=== PATIENT | male | born 1985 | race American Indian/Alaskan Native ===

== ENCOUNTER 2021-08-12 12:17 | Emergency (ER) | payer OTHER ==
[2021-08-12] MEDS ORDERED: fentaNYL 100 MCG/2 ML INJ IV ONE (12:37)
[2021-08-12] MEDS ORDERED: ONDANSETRON 4 MG/2 ML INJ IV ONE (12:37)
[2021-08-12] MEDS ORDERED: ETOMIDATE 20 MG/10 ML INJ IV ONE (12:40)
--- NOTE | 2021-08-12 12:40 | Emergency Department Report ---
HPI - General Chief Complaint: Extremity Problem,Nontraumatic Time Seen by Provider: 08/12/21 12:30 - HPI HPI: Room 7 The patient is a 36-year-old male present with a chief complaint of right shoulder pain. Patient states he was demonstrating symptoms to his son and when he pounded his right fist down on an object he felt his right shoulder dislocate. This is happened to him in the past. ED Past Medical Hx - Past Medical History Previous Medical History?: No - Surgical History Additional Surgical History: Herniorrhaphy age 10 - Family History Family history: no significant - Social History Smoking Status: Current Every Day Smoker (1/3 pack/day) Substance Use Type: Marijuana - Medications Home Medications: Home Medications Medication Instructions Recorded Confirmed Last Taken Type HYDROcodone/APAP 5-325 [[place] 1 - 2 each PO Q6HR PRN #14 tablet 08/12/21 Unknown Rx 5/325] Ibuprofen [Motrin 800 MG tab] 800 mg PO Q8HR PRN #20 tablet 08/12/21 Unknown Rx ED Review of Systems ROS: Stated complaint: SHOULDER DISLOCATION Other details as noted in HPI Constitutional: no symptoms reported Eyes: denies: eye pain ENT: denies: throat pain Respiratory: no symptoms reported Cardiovascular: denies: chest pain Endocrine: no symptoms reported Gastrointestinal: denies: abdominal pain Genitourinary: denies: dysuria Musculoskeletal: arthralgia Neurological: denies: headache Physical Exam - Physical Exam Vital Signs: Vital Signs 08/12/21 12:25 Temperature 98.6 F Pulse Rate 53 L Respiratory 12 Rate Blood Pressure 168/94 [Right] O2 Sat by Pulse 97 Oximetry Physical Exam: GENERAL: The patient is well-developed well-nourished male lying on stretcher not appearing to be in acute distress. [] HEENT: Normocephalic. Atraumatic. Extraocular motions are intact. Patient has moist mucous membranes. NECK: Supple. Trachea midline CHEST/LUNGS: There is no respiratory distress noted. HEART/CARDIOVASCULAR: Regular. There is no tachycardia. 2+ right radial pulse SKIN: There is no rash. There is no edema. There is no diaphoresis. NEURO: The patient is awake, alert, and oriented. The patient is cooperative. The patient has no focal neurologic deficits. The patient has normal speech. Normal medial/radial/ulnar nerve function in right upper extremity MUSCULOSKELETAL: There is deformity of the right shoulder ED Course Vital Signs 08/12/21 12:25 Temperature 98.6 F Pulse Rate 53 L Respiratory 12 Rate Blood Pressure 168/94 [Right] O2 Sat by Pulse 97 Oximetry - Moderate Sedation Indications: fracture/dislocation redu ASA Class: I Mallampati Airway Score: 1 Preparation: major assembly inspector applied, pulse oximeter, capnometry used, supplemental O2 applied, suction/airway equipment at bedside IV Etomidate Dose (mgs): 10 Complications: none Patient Tolerated Procedure: well, no complications - Orthopedic Joint Reduction Joint #1 Consent Obtained: verbal consent Time Out Performed: Yes Side: right Joint Reduction Location: shoulder Analgesia: moderate sedation Shoulder Technique Used (if applicable): traction/counter-traction Technique Used: traction/counter-traction Post-Reduction Neuro Exam: intact Post-Reduction Vascular Exam: intact Post Reduction X-Ray Obtained: Yes Post Reduction X-Ray Results: reduced Splint Applied: Yes (Shoulder immobilizer) Patient Tolerated Procedure: well, no complications ED Medical Decision Making - Radiology Data Radiology results: report reviewed (Right shoulder x-ray #1, right shoulder x- ray #2), image reviewed (Right shoulder x-ray #1, right shoulder x-ray #2) interpreted by me: Right shoulder x-ray #1-anterior dislocation, no fracture Right shoulder x-ray #2-anatomic. No fracture [address] [address] XRay Report Signed Patient: MARTINEZ CAAL MR#: [id number] : 1985 Acct:[id number] Age/Sex: 36 / M ADM Date: 08/12/21 Loc: ED Attending Dr: Ordering Physician: MARCOS VELA MD Date of Service: 08/12/21 Procedure(s): XR shoulder 2+V RT Accession Number(s): [id number] cc: MARCOS VELA MD Fluoro Time In Minutes: XR shoulder 2+V RT INDICATION / CLINICAL INFORMATION: Right shoulder pain after pounding fist. COMPARISON: None available. FINDINGS: There is an anterior glenohumeral joint dislocation. There is no appreciable fracture. Signer Name: Fabien Colmenares MD Signed: 08/12/2021 12:59 PM Workstation Name: [id number] Transcribed By: KRYSTLE Dictated By: Fabien Colmenares MD Electronically Authenticated By: Fabien Colmenares MD Signed Date/Time: 08/12/211258 DD/ 58 TD/TT: Print Cancel [facility] [address] [place] [address] XRay Report Signed Patient: MARTINEZ CAAL MR#: [id number] : 1985 Acct:[id number] Age/Sex: 36 / M ADM Date: 08/12/21 Loc: ED Attending Dr: Ordering Physician: MARCOS VELA MD Date of Service: 08/12/21 Procedure(s): XR shoulder 1V RT Accession Number(s): [id number] cc: MARCOS VELA MD Fluoro Time In Minutes: RIGHT SHOULDER ONE VIEW INDICATION: Post reduction. COMPARISON: Earlier today at 1246 hours IMPRESSION: Right shoulder dislocation has been reduced and is now anatomic in alignment. No obvious fracture on single view. Signer Name: Gwyn Lee Jr, MD Signed: 08/12/2021 2:23 PM Workstation Name: [id number] Transcribed By: TTR Dictated By: GWYN LEE JR, MD Electronically Authenticated By: GWYN LEE JR, MD Signed Date/Time: 08/12/211422 DD/ 21 TD/TT: Print Cancel ] - Differential Diagnosis Right shoulder dislocation, pathologic fracture Critical care attestation.: If time is entered above; I have spent that time in minutes in the direct care of this critically ill patient, excluding procedure time. ED Disposition Clinical Impression: Anterior dislocation of right shoulder Disposition: 01 HOME / SELF CARE / HOMELESS Is pt being admited?: No Does the pt Need Aspirin: No Condition: Stable Instructions: Shoulder Dislocation, [id number] Additional Instructions: Return to the emergency department should you develop worsening symptoms, inability to tolerate food or liquids, high fever or any other concerns Prescriptions: Ibuprofen [Motrin 800 MG tab] 800 mg PO Q8HR PRN #20 tablet PRN Reason: Pain, Moderate (4-6) HYDROcodone/APAP 5-325 [[place] 5/325] 1 - 2 each PO Q6HR PRN #14 tablet PRN Reason: Pain Referrals: PRIMARY CAREMD [Primary Care Provider] - 3-5 Days JABARI BERMEO MD [Staff Physician] - 3-5 Days (Dr. Bermeo is an orthopedic surgeon. Please follow-up with him for further evaluation) Time of Disposition: 14:32
--- NOTE | 2021-08-12 13:04 | XRay Report ---
XR shoulder 2+V RT INDICATION / CLINICAL INFORMATION: Right shoulder pain after pounding fist. COMPARISON: None available. FINDINGS: There is an anterior glenohumeral joint dislocation. There is no appreciable fracture. Signer Name: Fabien Colmenares MD Signed: 08/12/2021 12:59 PM Workstation Name: [id number]
[2021-08-12] MEDS: KETOROLAC 30 MG/1 ML INJ IV ONE ×2 (13:08→13:09)
[2021-08-12] MEDS ORDERED: SODIUM CHLORIDE 0.9% 1000 ML 1,000 ML ONE (13:33)
--- NOTE | 2021-08-12 14:27 | XRay Report ---
RIGHT SHOULDER ONE VIEW INDICATION: Post reduction. COMPARISON: Earlier today at 1246 hours IMPRESSION: Right shoulder dislocation has been reduced and is now anatomic in alignment. No obviou s fracture on single view. Signer Name: Gwyn Lee Jr, MD Signed: 08/12/2021 2:23 PM Workstation Name: [id number]
[2021-08-12 14:50] VITALS: BP 154/88
== END 2021-08-12 15:00 | disposition home or self-care (01) ==
LOC: ED 12:17
DX: S43.084A Other dislocation of right shoulder joint, initial encounter (principal); F17.200 Nicotine dependence, unspecified, uncomplicated; F12.90 Cannabis use, unspecified, uncomplicated; W22.8XXA Striking against or struck by other objects, initial encounter; Y93.89 Activity, other specified; Y92.89 Other specified places as the place of occurrence of the external cause; Y99.8 Other external cause status
CPT/HCPCS: 23650; 73020; 73030; 96374; 96375; 99284; J1885; J2405; J3010; J3490; J7030; Q0162